=== PATIENT | female | born 1985 | race Caucasian/White ===

== ENCOUNTER 2020-06-17 06:55 | Day surgery (SDC) | payer OTHER ==
[2020-06-15 16:57] VITALS: BMI 19.3
[2020-06-17] MEDS ORDERED: MIDAZOLAM HCL 2 MG/2 ML SINGLE DOSE VIAL ONE (08:04)
[2020-06-17] MEDS ORDERED: PROPOFOL 20 ML ONE (08:04)
[2020-06-17] MEDS ORDERED: LIDOCAINE HCL/PF 2% SDV 5ML VIAL ONE (08:20)
[2020-06-17] MEDS ORDERED: ONDANSETRON 4 MG/2 ML VIAL ONE (08:20)
[2020-06-17] MEDS ORDERED: DEXAMETHASONE SOD PHOSPHATE 4 MG/1 ML VIAL ONE (08:20)
[2020-06-17] MEDS ORDERED: BUPIVACAINE HCL/EPINEPHRINE/PF 30 ML VIAL IJ ONE (09:02)
[2020-06-17] MEDS ORDERED: BUPIVACAINE 0.25% /EPI 1:200,000 10 ML VIAL INF ONE (09:04)
[2020-06-17 10:36] VITALS: TEMP 98.2
[2020-06-17 11:12] VITALS: BP 118/76; PULSE 76
== END 2020-06-17 11:16 | disposition home or self-care (01) ==
LOC: FASU 06:55
PROVIDERS: ATTEND Orthopaedic Surgery Hand Surgery
PROC: 03QB0ZZ Repair Right Radial Artery, Open Approach (ICD-10-PCS; 2020-06-17)
PROC: 0LB50ZZ Excision of Right Lower Arm and Wrist Tendon, Open Approach (ICD-10-PCS; principal; 2020-06-17 08:44)
DX: M67.431 Ganglion, right wrist (principal)
CPT/HCPCS: 84703; 88304-TC; 94760